=== PATIENT | male | born 1955 | race Caucasian/White ===

== ENCOUNTER 2020-06-30 18:54 | Emergency (ER) | payer OTHER ==
--- NOTE | 2020-06-30 21:33 | EDM.PDOCBH ---
<OfficerBarrera - Last Filed: 06/30/20 21:27> ED HPI GENERAL MEDICAL PROBLEM - General Chief Complaint: Behavioral/Psych Stated Complaint: EVAL Time Seen by Provider: 06/30/20 19:47 Source of Information: Reports: Patient, Police, RN Notes Reviewed History Limitations: Reports: No Limitations - History of Present Illness INITIAL COMMENTS - FREE TEXT/NARRATIVE: 65-year-old gentleman presents emergency department today for psychiatric evaluation, he is brought in by law enforcement. He was recently served divorce papers today when this happened he became very distraught had what he describes as a panic attack felt the world was going to and his plan was to burn the house down and harm himself with a firearm. However he started thinking of his chi ldren he self corrected his action realized that his thinking was poor felt guilty about wanting to harm himself and discussed it with his behavior. Called law enforcement himself ask for help law enforcement then took all firearms and dispersed to family members. Was brought to the emergency department for psychiatric evaluation. At this time he denies any suicidal ideation admits that his decision and thinking was incorrect is remorseful about his thought process states he does have a psychiatrist who he has been working with has recently started on antidepressants however is only been taking the medication for little over a week. - Related Data Allergies Allergy/AdvReac Type Severity Reaction Status Date / Time No Known Allergies Allergy Verified 06/30/20 19:08 Home Meds: Home Meds Sertraline [Zoloft] 50 mg PO BEDTIME 06/30/20 [History] amLODIPine [Norvasc] 5 mg PO DAILY 06/30/20 [History] atorvaSTATin Calcium [Lipitor] 20 mg PO BEDTIME 06/30/20 [History] Past Medical History Cardiovascular History: Reports: High Cholesterol, Hypertension Psychiatric History: Reports: Anxiety, Depression Social & Family History - Tobacco Use Tobacco Use Status *Q: Never Tobacco User - Caffeine Use Caffeine Use: Reports: None - Recreational Drug Use Recreational Drug Use: No ED ROS GENERAL - Review of Systems Review Of Systems: See Below Constitutional: Reports: No Symptoms HEENT: Reports: No Symptoms Respiratory: Reports: No Symptoms Cardiovascular: Reports: No Symptoms GI/Abdominal: Reports: No Symptoms : Reports: No Symptoms Musculoskeletal: Reports: No Symptoms Neurological: Reports: No Symptoms Psychiatric: Reports: Anxiety, Depression, Suicidal Ideation (Now resolved). Denies: Homicidal Ideation ED EXAM, BEHAVIORAL HEALTH - Physical Exam Exam: See Below Text/Narrative:: Orientated to person place and time, appropriately dressed, well groomed, memory to recent and remote events intact, good attention and concentration, speech is of adequate rate tone and volume, good fund of knowledge, language is appropriate, Mood and affect are euthymic, no pressured thoughts, denies suicidal ideation, denies homicidal ideation, no hallucinations visual or auditory, good judgment, good insight Exam Limited By: No Limitations General Appearance: Alert, WD/WN, No Apparent Distress Respiratory/Chest: No Respiratory Distress, Lungs Clear, Normal Breath Sounds, No Accessory Muscle Use, Chest Non-Tender Cardiovascular: Regular Rate, Rhythm, No Murmur COURSE, BEHAVIORAL HEALTH COMP - Course Re-Assessment/Re-Exam: Called to have crisis team come and help with evaluation unfortunately they did not evaluate this patient, crisis team recommendation with any suicidal ideation is psychiatric hospitalization. Departure - Departure Disposition: Home, Self-Care 01 Clinical Impression: Situational depression, Suicidal ideation - Discharge Information Referrals: PCP,None [Primary Care Provider] - Forms: ED Department Discharge Additional Instructions: Continue your current meds. F/U with counseling. Return as needed. Sepsis Event Note (ED) - Evaluation Sepsis Screening Result: No Definite Risk - Assessment/Plan Plan: Assessment Acuity = acute Site and laterality = suicidal ideation with self correction Etiology = social situation with being served divorce papers Manifestations = none Location of injury = Home Lab values = none Plan I had a long discussion with his son who is closest with unfortunately lives 6 hours away felt that hospital placement is not the best for him at this time would like him discharged to his care therefore the plan is he will spend the night here in the emergency department his son will be traveling from [place] and arrived here tomorrow morning. His son is his main support system This note was dictated using [email or web address] voice recognition software please call with any questions on syntax or grammar. <Rohit Zazueta G - Last Filed: 07/01/20 10:46> COURSE, BEHAVIORAL HEALTH COMP - Course Vital Signs: Last Vital Signs Temp 35.9 C L 06/30/20 19:12 Pulse 75 06/30/20 19:12 Resp 14 06/30/20 19:12 BP 131/85 06/30/20 19:12 Pulse Ox 96 06/30/20 19:12 Medical Clearance: 07/01/20 08:06 Cleared for discharge in care of a son who drove over from [place] to pick his father up in our ER. Plans to take him back home with him. Will obtain counseling in [facility]. Departure - Departure Time of Disposition: 10:46 Condition: Fair - Discharge Information *PRESCRIPTION DRUG MONITORING PROGRAM REVIEWED*: Not Applicable *COPY OF PRESCRIPTION DRUG MONITORING REPORT IN PATIENT SALINAS: Not Applicable
== END 2020-07-01 10:57 | disposition home or self-care (01) ==
LOC: JP.ED 18:54
DX: F43.21 Adjustment disorder with depressed mood (principal); I10 Essential (primary) hypertension; E78.00 Pure hypercholesterolemia, unspecified; F41.9 Anxiety disorder, unspecified; Z79.899 Other long term (current) drug therapy
CPT/HCPCS: 99284

== ENCOUNTER 2023-04-01 07:16 | Day surgery (SDC) | payer MEDICARE ==
[~2023-04-01 07:16] MED LIST: Midazolam 1 MG/ML 2 ML SDV ONE; Propofol 200 MG/20 ML SDV ONE; fentaNYL 50 MCG/ML SDV ONE
[2023-04-01] MEDS ORDERED: Lactated Ringers 1,000 ML IV SCH (08:00)
== END 2023-04-01 11:23 | disposition home or self-care (01) ==
LOC: JP.SDS 07:16
PROVIDERS: ATTEND Student in an Organized Health Care Education/Training Program
DX: Z12.11 Encounter for screening for malignant neoplasm of colon (principal); D12.5 Benign neoplasm of sigmoid colon; K57.30 Diverticulosis of large intestine without perforation or abscess without bleeding; K64.4 Residual hemorrhoidal skin tags; F41.9 Anxiety disorder, unspecified; E78.00 Pure hypercholesterolemia, unspecified; I10 Essential (primary) hypertension
CPT/HCPCS: 45380; 88305; J2250; J2704; J3010; J7120